=== PATIENT | female | born 1950 ===

== ENCOUNTER → 2021-04-25 | Outpatient (CLI) | payer MEDICARE, OTHER ==
--- NOTE | 2021-04-25 15:49 | RAD ---
DXA BONE DENSITY AXIAL History: Postmenopausal Comparison: 10/28/2011. TECHNIQUE: Dual energy x-ray absorptiometry of the lumbar spine and right hip was performed. T-score of average bone mineral density based was calculated based on standard deviations above or below the expected young adult normal value. Diagnostic definitions were established by the [employer]. FINDINGS: The average bone mineral density associated with L1-L4 is 1.216 g/cm^2, corresponding with a T-score of 0.3. This is a 4.8% increase from baseline exam of 2012. The average total bone mineral density associated with right hip is 0.801 g/cm^2, corresponding with a T-score of -1.3. This is a 6.8% decrease from baseline exam of 2011. Refer to the worksheets for full detail. IMPRESSION: 1. Osteopenia. Average bone mineral density yields a T-score between -1.0 and -2.5. Fracture risk is increased. Electronically signed by: Jarad Maldonado MD (04/25/2021 3:46 PM) [id number]
--- NOTE | 2021-05-13 11:04 | RAD ---
Bilateral digital screening 2-D and 3-D (digital breast tomosynthesis) mammogram: Reason for examination: Routine screening. Comparison: Mammograms from 05/03/2019, 04/22/2019, 04/16/2018, 02/10/2017. Interpretation was made with the benefit of CAD. FINDINGS: Breast density: Category B. There are scattered areas of fibroglandular density. There is a 2 cm oval circumscribed mass containing punctate calcifications in the approximately 9:00 position of the right breast about 2 cm from the nipple at far posterior depth. Previously evaluated by ultrasound. It has increased slightly in size, but the increase is within expected range for benig n finding. On the MLO images there is an 8 mm oval asymmetry in the posterior aspect of the left breast approxim ately 5 cm from the nipple. This should be in the posterior central to retroareolar/3:00 position. It is not well-visualized on the CC images. It is best seen on slice 29/65. No malignant appearing calc ifications, or architectural distortion is seen. IMPRESSION: 2 cm benign-appearing mass in the 9:00 position of the right breast at far posterior depth likely due to a fibroadenoma. This has increased slightly in size previous mammograms, but it is within expecte d increased for a benign mass. There is a 8 mm oval asymmetry on MLO images posterior central/3:00 re gion of the left breast. Further evaluation with the targeted bilateral breast ultrasound is recommen ded. Assessment: BI-RADS 0. Incomplete. Recommendation: Targeted bilateral breast ultrasound. The patient will be notified of results and asked to schedule for additional imaging. The patient will receive a letter with the results in the mail. Patient information will be entered i nto the mammography reminder system with a target recall date for the next mammogram. A reminder shamika er will be generated. Electronically signed by: Macy Low MD (05/13/2021 11:02 AM) [id number]
== END ==
LOC: MAMMO 09:18
PROVIDERS: ATTEND Family Medicine
DX: Z12.31 Encounter for screening mammogram for malignant neoplasm of breast (principal); M85.89 Other specified disorders of bone density and structure, multiple sites; Z78.0 Asymptomatic menopausal state
CPT/HCPCS: 77063; 77067; 77080

== ENCOUNTER → 2021-05-27 | Outpatient (CLI) | payer MEDICARE, OTHER ==
--- NOTE | 2021-05-27 14:02 | RAD ---
EXAMINATION: US BREAST BILAT CLINICAL HISTORY: Callback right breast mass and left breast asymmetry TECHNIQUE: Targeted bilateral breast ultrasound performed with purcell scale and color Doppler images. COMPARISON: Bilateral screening mammogram 04/25/2021 FINDINGS: RIGHT: At 9:00 position 3.5 cm from the nipple, there is a mostly circumscribed oval hypoechoic mass measuri ng 1.8 x 0.7 x 1.5 cm corresponding to the mammographic finding, possibly a fibroadenoma. LEFT: At 3:00 position 5 cm from the nipple, there is a 6 x 3 x 4 mm lesion compatible with an intramammary lymph node corresponding to the mammographic finding. IMPRESSION: Probably benign 1.8 cm mass in the right breast, recommend follow-up right breast diagnostic mammogra m and targeted right breast ultrasound in 6 months. BI-RADS ASSESSMENT: Category 3: Probably Benign RECOMMENDATION: Right breast diagnostic mammogram and right breast ultrasound in 6 months. PQRS compliance statement - Patient information was entered into a reminder system with a target due date for the next mammogram. "Our facility is accredited by the [employer] Mammography [employer]." Electronically signed by: Dejan Mitchell DO (05/27/2021 1:59 PM) [id number]
== END ==
LOC: US 13:01
PROVIDERS: ATTEND Family Medicine
DX: R92.2 Inconclusive mammogram (principal)
CPT/HCPCS: 76641-50